=== PATIENT | female | born 1960 | race Caucasian/White ===

== ENCOUNTER 2025-01-01 11:26 | Emergency (ER) | payer MEDICARE, OTHER, SELFPAY ==
[2025-01-01] VITALS (8 sets, daily range): BP systolic 94–126; BP diastolic 55–70; BMI 31.0
--- NOTE | 2025-01-01 12:50 | ED.GENMED ---
History of Present Illness
General
Chief Complaint: Abdominal Pain
Source: patient
Exam Limitations: none
Time Seen by Provider: 01/01/25 12:07
Nursing documentation reviewed up to this point in time: agreed with
History of Present Illness
History of Present Illness:
64-year-old female presenting to the emergency department today with concerns of fever nausea worsening discomfort to her lower abdomen. She had multiple hernia surgeries 2 weeks ago at [place] has had some degree of discomfort since but worsening
symptoms over the past 24 hours or so. She is concerned she may becoming infected. Denies any external abnormalities has had ongoing drainage to her TRACE drains. She currently has [address]
Past History
Past History
ED Past Medical History: Other (Ulcerative colitis)
Social History
Tobacco: Non-smoker
Alcohol: None
Living: with family
Review of Systems
Review of Systems
Allergies reviewed?: Yes
All Other Systems: ROS reviewed and negative except as documented in HPI and ROS
Phy Exam
Physical Exam
Physical Exam:
GENERAL: Alert , in no apparent distress
EYE: pupils equal and reactive
NECK: Supple, no significant adenopathy.
ENT: o/p clr, mmm.
CARDIAC: Regular rate and rhythm .
LUNGS: Clear breath sounds bilaterally, no acute respiratory distress, no wheezes/rales/rhonchi
ABDOMEN: Distended abdomen midline incision without significant redness or warmth or tenderness to the area but vague tenderness throughout the abdomen. Some redness and irritation as well as tenderness palpation in the left lower quadrant at the
exit site of 2 of the patient's TRACE drains. TRACE drains with a light red color somewhat cloudy.
NEUROLOGICAL: Alert and oriented, no focal neuro deficits
SKIN: Warm and dry, skin intact.
MUSCULOSKELETAL: No edema, well perfused.
PSYCH: Normal and appropriate interaction.
Course
Orders/Labs/Results
Orders:
Orders
01/01/25 12:37
CT Abd/Pel (IV only)-DH only Urgent
Comment:
Reason For Exam: llq painrecent multiple hernia surgery TRACE drains/f
Urinalysis Reflex To Culture Urgent
HYDROmorphone [Dilaudid] 0.5 mg IV NOW STA
Ondansetron Injectable [Zofran] 4 mg IV NOW STA
01/01/25 12:52
Complete Blood Count/With Diff Urgent
Comprehensive Metabolic Panel Urgent
Lactic Acid Urgent
Lipase Urgent
01/01/25 15:39
HYDROmorphone [Dilaudid] 0.5 mg IV NOW STA
Piperacillin/Tazo 3.375 Gram [Zosyn] 3.375 gram in 50 ml IV NOW
Abnormal Lab Results
01/01/25
12:52
WBC 16.1 H 10^3/uL
(4.8-10.8)
RBC 3.84 L 10^6/uL
(4.20-5.40)
Hgb 11.6 L g/dL
(12.0-16.0)
Hct 34.1 L %
(37.0-47.0)
Plt Count 466 H 10^3/uL
(130-400)
Abs Immat Gran (auto) 0.1 H 10^3/uL
(0-0.05)
Absolute Neuts (auto) 12.9 H 10^3/uL
(1.4-6.5)
Absolute Monos (auto) 1.3 H 10^3/uL
(0.1-0.6)
Neutrophils % 80.0 H %
(42.2-75.2)
Lymphocytes % 8.6 L %
(20.5-51.1)
Sodium 130 L mmol/L
(135-145)
Chloride 96 L mmol/L
(98-107)
Creatinine 0.5 L mg/dL
(0.6-1.0)
Glucose 122 H mg/dl
(70-99)
01/01/25 12:52
01/01/25 12:52
Vital Signs
Initial and Last Documented VS:
Initial Vital Signs
Temp Pulse Resp BP Pulse Ox
99.7 F 123 18 108/63 96
01/01/25 11:39 01/01/25 11:39 01/01/25 11:39 01/01/25 11:39 01/01/25 11:39
Last Documented Vital Signs
Temp Pulse Resp BP Pulse Ox
99.7 F 89 15 110/59 96
01/01/25 11:39 01/01/25 17:15 01/01/25 17:15 01/01/25 17:00 01/01/25 17:15
MDM/Problems Addressed
MDM/Problems Addressed:
64-year-old female presenting to the emergency department today with concerns of worsening abdominal pain fevers. Recently had multiple hernia surgeries 2 weeks ago at [place]. On arrival tachycardic low-grade temperature of 99.7. Patient does have
an area of discomfort to the left lower quadrant of the abdomen at the site of the TRACE drain. Labs showing elevated white count of 16.1 CT scan was obtained that showed collection that is possibly consistent with infection. Case was then discussed
with surgical team at [place] that would like the patient to be transferred there. They did call back and they did not have a bed available at this time but would like the patient admitted for IV antibiotics and will be transferred when bed is
available. Patient was stable throughout ER stay.
*Pulse Oximetry
SaO2: 96
Oxygen Mode of Delivery: Room air
Patient hypoxic: no (96)
*Critical Care Note
Total Time (30-74mins, 75-104mins- exclusive of procedures): Not Applicable
ED Attending Note
-
Portions of this chart may have been created with voice recognition software.� Occasional wrong word or��sound alike� substitutions may have occurred due to the inherent limitations of voice recognition software.
Discharge Plan
Departure
Patient Disposition: Admit
Date of Disposition: 01/01/25
Time of Disposition: 18:07
Admit to: Med/Surg
Admit to doctor: [place]
Presentation/result/management discussed w/ accepting MD/DO: Hospitalist
Patient with high blood pressure during this ER visit?: No
Condition: Good
Covid-19: Not Applicable
Discharge Problem:
Intra-abdominal infection after surgical procedure
Referrals:
UNKNOWN - PT DOES,NOT KNOW [Family Provider]
Interventions
Interventions:
*Risk Screen - Suicide Last Done: 01/01/25 11:39
*General Assessment Last Done: 01/01/25 11:39
*Neglect/Abuse Screening Last Done: 01/01/25 11:39
*ED COVID-19 Vaccine History Last Done: 01/01/25 14:00
NO-Ipcbxr-Zzablaidyk Assessment Last Done: 01/01/25 14:00
Discharge Date and Time
Print Language: BRITISH
[2025-01-01] MEDS: ZOFRAN 4 MG IV (12:55)
[2025-01-01] MEDS: DILAUDID 0.5 MG IV ×2 (12:55→16:00)
[2025-01-01 13:08] LABS: Hematocrit 34.1 % (37.0-47.0); Hemoglobin 11.6 g/dL (12.0-16.0); Mean Corp Hgb Conc. 34.0 g/dL (33.0-37.0); Mean Corpuscular Volume 88.8 fL (81.0-99.0); Nucleated Red Blood Cells % 0 %; Platelet Count 466 10^3/uL (130-400); Red Cell Dist. Width 12.9 % (11.5-14.5)
[2025-01-01 13:19] LABS: ALT (SGPT) 13 U/L (0-35); AST (SGOT) 15 U/L (14-36); Albumin 3.8 g/dl (3.5-5.0); Alkaline Phosphatase 82 U/L (38-126); Blood Urea Nitrogen 9 mg/dl (7-17); Calcium 8.9 mg/dl (8.4-10.2); Carbon Dioxide 30 mmol/L (22-30); Chloride 96 mmol/L (98-107); Estimated Creatinine Clearance 85 ml/min; Glucose 122 mg/dl (70-99); Lipase 25 U/L (23-300); Potassium 3.9 mmol/L (3.5-5.1); Sodium 130 mmol/L (135-145); Total Protein 6.6 g/dl (6.3-8.2); eGFR > 60.00
[2025-01-01] MEDS: ZOSYN 50 IV (16:00)
[2025-01-01 19:40] LABS: Urine Character Clear (Clear)
[2025-01-01 19:51] LABS: Urine Squamous Cell >30 /LPF (Few)
[2025-01-01 19:52] LABS: Urine Red Blood Cell 0-2 /HPF (0-2); Urine White Cell 0-2 /HPF (0-5)
== END 2025-01-01 19:40 | disposition short-term general hospital (02) ==
LOC: EMR 11:26
PROVIDERS: Physician Assistant; EMERGENCY PHYSICIAN Emergency Medicine
DX: T81.40XA Infection following a procedure, unspecified, initial encounter (principal); Z97.8 Presence of other specified devices
CPT/HCPCS: 96375; 96365; 99285; 74177; 80053; 81003; 81015; 83605; 83690; 85025; 87086; Q9967

== ENCOUNTER 2025-01-28 20:42 | Inpatient (IN) | payer MEDICARE, OTHER, SELFPAY ==
[2025-01-28] VITALS (8 sets, daily range): BP systolic 110–140; BP diastolic 45–83; BMI 31.2; BMI 31.9
[2025-01-28 13:40] LABS: Hematocrit 36.2 % (37.0-47.0); Hemoglobin 12.4 g/dL (12.0-16.0); Mean Corp Hgb Conc. 34.3 g/dL (33.0-37.0); Mean Corpuscular Volume 83.0 fL (81.0-99.0); Nucleated Red Blood Cells % 0 %; Red Cell Dist. Width 12.9 % (11.5-14.5)
[2025-01-28 13:44] LABS: Urine Character Slightly Cloudy (Clear)
[2025-01-28 13:51] LABS: ALT (SGPT) 13 U/L (0-35); AST (SGOT) 17 U/L (14-36); Albumin 3.9 g/dl (3.5-5.0); Alkaline Phosphatase 111 U/L (38-126); Blood Urea Nitrogen 21 mg/dl (7-17); Calcium 9.7 mg/dl (8.4-10.2); Carbon Dioxide 29 mmol/L (22-30); Chloride 96 mmol/L (98-107); Glucose 137 mg/dl (70-99); Potassium 3.8 mmol/L (3.5-5.1); Sodium 133 mmol/L (135-145); Total Protein 7.4 g/dl (6.3-8.2); eGFR > 60.00
[2025-01-28 13:58] LABS: Platelet Count 374 10^3/uL (130-400)
[2025-01-28 14:01] LABS: Urine Squamous Cell >30 /LPF (Few)
[2025-01-28 14:01] LABS: COVID-19 Antigen Negative (Negative)
[2025-01-28 14:02] LABS: Urine Red Blood Cell 0-2 /HPF (0-2); Urine White Cell 60-70 /HPF (0-5)
--- NOTE | 2025-01-28 17:20 | ED.GENMED ---
History of Present Illness
General
Chief Complaint: Fever
Time Seen by Provider: 01/28/25 17:20
History of Present Illness
History of Present Illness:
FOCUSED PAST MEDICAL HISTORY
- The patient has a history of GERD, colitis, abdominal wall hernia surgery in 2024
REVIEW OF OLD RECORDS
-Hospital Course [place]:
'Beatriz Naqvi is a 64 y.o. year-old female with a history of ventral hernia repair (12/15/24, Dr. Abrams), ulcerative colitis (on infliximab), RA (on methotrexate), labial abscess 2/2 MRSA (treated with Doxy), HTN, anxiety, and depression who
presented as a transfer from [place] with fevers and concern for infection of recent hernia incisional site on 01/01/25.
She was admitted post-operatively following her VHR on 12/15, and was discharged on POD #5 (12/20) with 3 TRACE drains. 2 days prior to presenting to OSH, her post-surgical pain had worsened, which was not relived by PO oxycodone.
Upon arrival to OSH, she presented with a fever (Tmax 102 F) with 10/10 abdominal pain from L sided TRACE drain site concerning for infection. She was HDS, with labs pertinent for WBC 16.1, Hgb 11.6, Cr 0.5, Na 130. The patient was started on IV zosyn.
A CT abdomen/pelvis was performed given c/f infection which was concerning for a small fluid collection. Formal OSH read uploaded in media tab. She was transferred to [facility] for continuity of care.
Upon arrival to [facility], she was continued on IV zosyn, started IV vanc, given a CLD, and obtained a Bcx, UA/UC, and RPP. Infectious work-up overall negative, although Bcx were still pending by discharge. B/l lower extremity duplexes negative on
preliminary report. On exam, her midline incision was CDI with steri-strips, although 4-5cm area of blanching erythema noted near the middle portion of the incision. Drain site 3 (L side) with minimal purulent drainage and was tender to palpation.
Upon review of OSH scan, there were no drainable fluid collections, however she had a small amount of fluid in the retrorectus space which is expected after repair. Pain managed with PO oxycodone and tylenol. Physical exam and labs consistent with
soft tissue cellulitis. She was managed conservatively.
HD #1 (01/02): Pain and leukocytosis improved following continuation of broad spectrum ABX. Advanced to regular diet. Intermittent complaints of nausea, given zofran with relief. Intermittently requiring O2 via NC.
HD #2 (01/03): Leukocytosis continued to downtrend and she remained on IV abx. Endorsed one episode of bilious emesis in early AM. SPO2 goals decreased to 90% due to long-term prior smoking hx, and she remained off NC. Drain 2&3 removed. She was given
a bowel regimen.
HD #3 (01/04): Tolerating GI sensitive diet without nausea/vomiting. IV abx transitioned to PO Doxycyline. Desat to 88% while sleeping, and required supplemental O2. She was given an albuterol neb in AM, and was later weaned to RA. She was deemed
stable for discharge home.
At the time of discharge the patient had stable vital signs, was ambulating independently, was tolerating a GI sensitive diet, had regular bowel and bladder function and pain was well controlled with oral medications. Patient is to be discharged
with 1 TRACE drain (#4) in place and was taught how to monitor/record output prior to discharge. They were instructed to follow-up with Richelle Hernandez NP once TRACE drain output met criteria for removal. She was discharged with Doxycycline for a total of 10
days worth of ABX (01/02-01/11). All plans were reviewed with the surgical attending. '
Note:
CHIEF COMPLAINT(S)
Fever, abdominal pain, and post-surgical wound concerns.
HISTORY OF PRESENT ILLNESS
The patient is a 64-year-old female who presented to the emergency department with a chief complaint of fever and abdominal pain. She underwent surgery for a 'triple hernia' which involved two ventral hernias. The surgery was performed on December 15.
She experienced a post-operative infection, requiring an emergency return to the hospital, which led to a four-day stay and the removal of two additional drains. The site is currently packed twice daily by a nurse.
The patient reported having a fever last night and believes it has returned now. She denied any respiratory symptoms but noted nausea and vomiting. She also stated that the white blood cell count was elevated at 19,000. The patient mentioned having
a yeast infection as a result of the antibiotics and complaints of urinary tract infection (UTI) symptoms.
The patient expressed experiencing abdominal pain described as similar to menstrual cramps over the last two days. She also reported experiencing vomiting.
PAST MEDICAL AND SURIGICAL HISTORY
Hernia repair surgery for two ventral hernias on December 15, followed by emergency intervention due to post-surgical infection.
SOCIAL HISTORY
The patient was accompanied by her daughter to the emergency department.
REVIEW OF SYSTEMS
- General: Fever present, reportedly high white blood cell count.
- Gastrointestinal: Nausea and vomiting, menstrual cramps-like pain in the abdomen.
- Genitourinary: Symptoms suggestive of a urinary tract infection and yeast infection following antibiotic therapy.
- Respiratory: No respiratory symptoms reported.
PHYSICAL EXAM
General: Appears somewhat uncomfortable, awake and alert
Skin: Warm, dry.
Head: Normocephalic, atraumatic.
Neck: Supple, trachea midline.
Eyes, Ears, Nose, Mouth, and Throat: Oral mucosa moist.
Cardiovascular: Normal peripheral perfusion, no edema.
Respiratory: Respirations are non-labored.
Gastrointestinal: Abdomen nondistended, packing is noted in the midline incision in the lower abdominal wall in 2 open surgical wounds, mild to moderate tenderness at the affected region, no significant cellulitic changes noted
Back: Normal range of motion, normal alignment.
Musculoskeletal: Normal range of motion, normal strength.
Neurological: Alert and oriented to person, place, time, and situation, no focal neurological deficit observed.
Psychiatric: Cooperative, appropriate mood and affect.
PLAN
1. Obtain a computed tomography (CT) scan to evaluate the abdominal and surgical site conditions.
2. Address pain management, possibly providing stronger medication as requested.
3. Monitor and assess the yeast infection and discuss potential treatments for both yeast infection and suspected UTI.
4. Continue monitoring vital signs and symptoms, particularly fevers and any signs of infection.
DIFFERENTIAL DIAGNOSIS
The Differential Diagnosis includes, in no particular order and is not limited to:
1. Post-surgical wound infection
2. Urinary tract infection
3. Abdominal abscess
4. Peritonitis
5. Yeast infection secondary to antibiotic use
6. Adhesive small bowel obstruction
7. Incisional hernia
8. Diverticulitis
9. Pelvic inflammatory disease
10. Gastroenteritis
RADIOLOGY
- CT abdomen pelvis obtained.
LABS
- White count 19.0, hemoglobin normal, BUN 21, urinalysis shows 60-70 white cells per high-powered field however she also has greater than 30 squamous epithelial cells per low power field. COVID-negative
UPDATE
-SUMMARY OF ENCOUNTER
The patient, a 64-year-old female with a recent history of hernia repair surgery and subsequent complications, was seen due to concerns about ongoing infection. She presented with a high white blood cell count and symptoms of infection. The
evaluation revealed signs of possible diverticulitis in addition to complications related to her recent surgery. Given her elevated white blood cell count and potential signs of an infection possibly involving the colon, the decision was made to
initiate IV antibiotic therapy and consider hospitalization for further monitoring and management.
DISPOSITION
Admit
ASSESSMENT
The patient is presenting with a high white blood cell count and signs of infection. There is a suspicion of diverticulitis, potentially separate from the post-surgical wound infection. The patient has a known history of ulcerative colitis, which
complicates the clinical picture.
EMERGENCY TREATMENTS ADMINISTERED
Initiation of IV antibiotic therapy to address the possible infection.
MANAGEMENT OF THE PATIENTS CARE WAS DISCUSSED WITH
The hospitalist was consulted regarding the decision to admit the patient for closer monitoring and management, given the high white blood cell count and suspected infectious process.
PLAN
- Admit the patient for inpatient monitoring and management.
- Initiate IV antibiotic treatment to address possible infection.
- Continue to monitor white blood cell count and infection markers.
- Evaluate the need for surgical or gastroenterological consultation if symptoms persist or escalate.
- Reassess the patients condition regularly, including monitoring for any signs of complications related to diverticulitis or ulcerative colitis.
INDEPENDENT REVIEW OF LABS AND INTERPRETATION OF TESTS
My independent review of the complete blood count (CBC) indicates leukocytosis with an elevated white blood cell count.
MEDICAL DECISION MAKING
- Number and Complexity of Problems Addressed: Chronic conditions affecting care include recent hernia repair with possible post-operative infection, suspected diverticulitis, and history of ulcerative colitis. Differential Diagnosis includes, but
is not limited to, post-surgical wound infection, urinary tract infection, abdominal abscess, peritonitis, yeast infection secondary to antibiotics, adhesive small bowel obstruction, incisional hernia, diverticulitis, pelvic inflammatory disease,
and gastroenteritis.
- Data:
Category 1:
- Reviewed the patients complete blood count indicating leukocytosis.
Category 3:
- Discussion of management with the hospitalist regarding the decision to admit the patient for IV antibiotic therapy and further monitoring.
-Risk: Prescription medication was prescribed and initiated in the form of IV antibiotics for infection management. The patients social determinants, such as her ability to attend follow-up appointments, were considered in the decision-making
process.
DIAGNOSIS
- K57.32 - Diverticulitis of large intestine without perforation or abscess without bleeding
- D72.829 - Elevated white blood cell count, unspecified
- K51.911 - Ulcerative colitis, unspecified, with unspecified complications
At 8pm, I did call [facility] and spoke to the on-call general surgeon, Dr. Barnhart who sees no need for transfer at this time but agrees with IV antibiotics.
Past History
Past History
ED Past Medical History: Other (Ulcerative colitis)
Social History
Tobacco: Non-smoker
Alcohol: None
Living: with family
Phy Exam
Physical Exam
Physical Exam:
See HPI
Course
Orders/Labs/Results
Orders:
Orders
01/28/25 13:19
COVID-19 Antigen Urgent
Source: Nasal Swab
Complete Blood Count/With Diff Urgent
Comprehensive Metabolic Panel Urgent
Lactic Acid Urgent
Blood Culture Urgent
DANIELITO Source: Blood/Venous
Specimen Description:
Influenza A+B Rapid Molecular Urgent
DANIELITO Source: Nasal Swab
Specimen Description:
Date Specimen was Collected: 01/28/25
Time Specimen was Collected: 13:10
01/28/25 13:20
Urinalysis Reflex To Culture Urgent
Date Specimen was Collected: 01/28/25
Time Specimen was Collected: 13:10
Urine Microscopic Reflex Cult Urgent
Urine Culture Urgent
DANIELITO Source: U
Specimen Description:
Date Specimen was Collected: 01/28/25
Time Specimen was Collected: 13:10
01/28/25 17:26
CT Abd/pelvis W Iv Cont Urgent
Comment:
Reason For Exam: fevers, WBC 19, pain, ventral wall hernia surg 1M
01/28/25 17:51
HYDROmorphone [Dilaudid] 1 mg IV NOW STA
01/28/25 17:52
Ondansetron Injectable [Zofran] 4 mg IV NOW STA
01/28/25 19:37
Piperacillin/Tazo 3.375 Gram [Zosyn] 3.375 gram in 50 ml IV NOW
01/28/25 19:41
Vancomycin [Vancocin] 2,000 mg 0.9% Sodium Chloride 500 ml [Nss] 500 ml IV NOW
Abnormal Lab Results
01/28/25 01/28/25
13:19 13:20
WBC 19.0 H 10^3/uL
(4.8-10.8)
Hct 36.2 L %
(37.0-47.0)
Abs Immat Gran (auto) 0.1 H 10^3/uL
(0-0.05)
Absolute Neuts (auto) 15.4 H 10^3/uL
(1.4-6.5)
Absolute Monos (auto) 1.4 H 10^3/uL
(0.1-0.6)
Neutrophils % 81.1 H %
(42.2-75.2)
Lymphocytes % 10.2 L %
(20.5-51.1)
Sodium 133 L mmol/L
(135-145)
Chloride 96 L mmol/L
(98-107)
BUN 21 H mg/dl
(7-17)
Glucose 137 H mg/dl
(70-99)
Ur Occult Blood Reflex 2+ A
(Negative)
Leukocyte Esterase Rfl 3+ A
(Negative)
Urine WBC (Reflex) 60-70 A /HPF
(0-5)
Urine Bacteria (Reflex) Few A
(Negative)
Urine Albumin (Reflex) 2+ A
(Neg - Trace)
01/28/25 13:19
01/28/25 13:19
Vital Signs
Initial and Last Documented VS:
Initial Vital Signs
Temp Pulse Resp BP Pulse Ox
36.7 C 94 20 134/83 94
01/28/25 13:04 01/28/25 13:04 01/28/25 13:04 01/28/25 13:04 01/28/25 13:04
Last Documented Vital Signs
Temp Pulse Resp BP Pulse Ox
36.9 C 96 18 125/68 92
01/28/25 19:18 01/28/25 20:00 01/28/25 20:00 01/28/25 20:00 01/28/25 20:00
*Pulse Oximetry
SaO2: 94
Oxygen Mode of Delivery: Room air
Patient hypoxic: no
*Critical Care Note
Total Time (30-74mins, 75-104mins- exclusive of procedures): Not Applicable
ED Attending Note
-
Portions of this chart may have been created with voice recognition software.� Occasional wrong word or��sound alike� substitutions may have occurred due to the inherent limitations of voice recognition software.
Discharge Plan
Departure
Patient Disposition: Admit
Date of Disposition: 01/28/25
Time of Disposition: 20:05
Presentation/result/management discussed w/ accepting MD/DO: Hospitalist
Discharge Problem:
Diverticulitis
Prescriptions:
No Action
infliximab [Remicade] 100 mg Recon Soln
100 mg IV MONTHLY
folic acid 1 mg Tablet
4 mg PO DAILY
Patient Comments:
unsure how much
hydrochlorothiazide 12.5 mg Tablet
2.5 mg PO DAILY
Referrals:
Laurie Rod DO [Family Provider, Family Practice]
Interventions
Interventions:
*Risk Screen - Suicide Last Done: 01/28/25 13:04
*General Assessment Last Done: 01/28/25 13:04
*Neglect/Abuse Screening Last Done: 01/28/25 17:58
*ED- Fall Risk Assessment Last Done: 01/28/25 17:58
*ED COVID-19 Vaccine History Last Done: 01/28/25 17:58
ED- Neurological Assessment Last Done: 01/28/25 17:58
ED-Skin Assessment Last Done: 01/28/25 17:58
Discharge Date and Time
Print Language: GUYANESE
[2025-01-28] MEDS: ZOFRAN 4 MG IV (17:55)
[2025-01-28] MEDS: DILAUDID 1 MG IV (17:55)
--- NOTE | 2025-01-28 18:29 | EDRN ---
this RN noticed that the pts Sp02 dipped to 77% while on RA, this RN entered the pts room and the pt was sleeping, this RN placed the pt on 6L NC and notified Dr. Sanchez, the pt stated to this RN, 'I probably have sleep apnea, i was told
this before i just never got tested for it', Sp02 96%, no c/o chest pain, no c/o SOB, will continue to monitor the pt closely
[2025-01-28] MEDS: ZOSYN 50 IV (19:40)
--- NOTE | 2025-01-28 19:43 | HPS.HSE ---
Addendum entered and electronically signed by NUNU Moraes 01/28/25 20:39:
as per surgery: We can manage with abx for now, suspect may be related or is involving her abdominal wall repair. If she needs surgery or anything beyond abx she should be transferred to [facility].
Original Note:
Family Physician
-
Family Physician: Laurie Rod
Chief Complaint
-
abdominal pain
History of Present Illness
64-year-old female with past medical history for hypertension who presented to the emergency department with a chief complaint of fever and abdominal pain. she had a temp of 101 and 102 at home. she was nauseous and vomited few times. patient
stated shaking chills. she is constipated and has not moved bowels in four days despite on stool softener. patient stated urinary dysuria. she feels the urgency but was only dribbling. She underwent surgery for a 'triple hernia' which involved two
ventral hernias. The surgery was performed on December 15. She experienced a post-operative infection, requiring an emergency return to the hospital, which led to a four-day stay and the removal of two additional drains. The site is currently packed
twice daily by a nurse. patient complained of ARGUETA, dizzy. denied cough, congestion, chest pain, sob.
The patient mentioned having a yeast infection as a result of the antibiotics and complaints of urinary tract infection (UTI) symptoms.
CT with diverticulitis. Patient received Vanco and Zosyn in ER. Admitting for further management
Medical History
Past Medical History
Past Medical History: Reports Other
Additional Past Medical History:
Hypertension, ulcerative colitis
Past Surgical History: Reports Other
Additional Past Surgical History:
Ventral hernia repair
Social History
Tobacco: Former Smoker
Alcohol: None
Drug: None
Family History
Family History: Not pertinent
Allergies / Home Medications
Allergies reflects when Allergies were last updated in [employer].
Home Medications with original date entered in [employer]
Allergy/Medication List:
Allergies
Allergy/AdvReac Type Severity Reaction Status Date / Time
codeine Allergy Vomiting Verified 01/28/25 13:06
Home Medications
folic acid 1 mg tablet 4 mg PO DAILY 01/01/25
hydrochlorothiazide 12.5 mg tablet 2.5 mg PO DAILY 01/01/25
infliximab 100 mg intravenous solution (Remicade) 100 mg IV MONTHLY 01/01/25
Review of Systems
-
Constitutional: Reports No Symptoms
EENT: Reports No Symptoms
Respiratory: Reports No Symptoms
Cardiac: Reports No Symptoms
Abdomen/GI: Reports Abdominal Pain, Nausea, Vomiting and Constipated
: Reports Dysuria
Musculoskeletal: Reports No Symptoms
Skin: Reports No Symptoms
Neurological: Reports No Symptoms
Endocrine: Reports No Symptoms
Hematologic/Lymphatic: Reports No Symptoms
Psych: Reports No Symptoms
Physical Exam
Vital Signs
Vital Signs
Temp Pulse Resp BP Pulse Ox
98.4 F 99 11 140/73 100
01/28/25 19:18 01/28/25 19:18 01/28/25 19:18 01/28/25 19:17 01/28/25 19:18
Physical Exam
General: Well Developed, Well Nourished and No Apparent Distress
HEENT: NormoCephalic, Moist mucous membranes and Atraumatic
Respiratory: Clear
Cardiac: S1/S2 and Regular Rhythm; No Murmur or Rub
GI: Soft, Non Tender, Non Distended and Normal Bowel Sounds; No Organomegaly
Rectal: Deferred by Provider
Musculoskeletal: No Clubbing, No Cyanosis and No Edema
Skin: Rash and Other (Abdominal wound site with drainage packed)
Neuro: AO x 3 and Nonfocal/grossly intact
Psych: Calm
Laboratory Results
-
01/28/25 13:19
01/28/25 13:19
Laboratory Results
Lactic Acid 1.3 mmol/L (0.7-2.0) 01/28/25 13:19
Total Bilirubin 0.7 mg/dl (0.2-1.3) 01/28/25 13:19
AST 17 U/L (14-36) 01/28/25 13:19
ALT 13 U/L (0-35) 01/28/25 13:19
Alkaline Phosphatase 111 U/L (38-126) 01/28/25 13:19
Data Reviewed
-
CT Scan: Report Reviewed by me
Lab Data: Labs Reviewed by me
Impression/Plan
-
# Abdominal pain secondary to diverticulitis
# Abdominal wound from drain site
- Vanco and Zosyn continue
- WBCs 19.0, patient is afebrile
-Wound care consulted
-Tylenol as needed for fever and pain
-Clear liquid diet, advance as tolerated
-Colorectal consulted
- CT abdomen pelvis with impression of Findings suggesting moderate acute diverticulitis of the mid sigmoid colon. No evidence of perforation or abscess formation in this region. New.Mildly rim-enhancing fluid collection in the anterior pelvic wall
which may be a postoperative seroma or hematoma. Abscess cannot be excluded. New.Small anterior pelvic wall wound versus incisional dehiscence.Small hiatal hernia. Stable Hepatic fatty infiltration. Stable Moderate fecal matter in the colon. Stable
# Hyponatremia likely from hydrochlorothiazide
- Sodium 133 continue to monitor
- Hold HCTZ
# Essential hypertension
- BP stable
- Continue to monitor
# History of ulcerative colitis
- On Remicade as outpatient
# DVT prophylaxis
- Lovenox
# CODE STATUS
- Full code
--- NOTE | 2025-01-28 19:57 | W.PN.UPDATE ---
Update Note
Progress Note Update
This note serves as an addendum to the H&P by mental health orderly BHARGAV�
Joana EDGAR�
HPI
64F s/p two ventral hernias repai at [facility], December 15 complictaed with infection abd wall required drainage seen at ER:
- fevering , and abdominal pain. S
- surgical site is packed twice daily by a nurse.
- reported having a fever last night and believes
- noted nausea and vomiting.
- WCC was 19k
- abdominal pain described as similar to menstrual cramps over the last two days. She also reported experiencing vomiting.
Relevant VS:
Temp Pulse Resp BP Pulse Ox
98.4 F 99 11 140/73 100
01/28/25 19:18 01/28/25 19:18 01/28/25 19:18 01/28/25 19:17 01/28/25 19:18
PE
Gen: no toxic
HEENT: anicteric
Neck: supple
Lungs: CTA
Cor: RRR S1 S2
Abdomen:�distended , mid line abdonial wound is covered by dressing
[employer]: AAO3 NFND
MS: no edema
Psych: Nl mood and affect
Relevant Data
WCC 19
Na 133 Cl 96
Cr 0.8 eGFR > 60
abn UA UA 01/28/25
13:20
Leukocyte Esterase Rfl 3+ A
Urine RBC 0-2
Urine WBC (Reflex) 60-70 A
Ur Squamous Epith Cells >30
NEG Cov[address]
CT AP W Iv Cont
- moderate acute diverticulitis of the mid sigmoid colon.
No evidence of perforation or abscess formation in this region.
- New mildly rim-enhancing fluid collection in the anterior pelvic wall which may be a postoperative seroma or hematoma.
Abscess cannot be excluded. New.
- Small anterior pelvic wall wound versus incisional dehiscence.
- Small hiatal hernia. Stable
- Hepatic fatty infiltration. Stable
- Moderate fecal matter in the colon. Stable
ASSESSMENT & PLAN
CT suggests moderate acute uncomplicated diverticulitis of the mid sigmoid colon
- first attack of diverticulitis
- No evidence of perforation or abscess formation in this region.
- Some increased abd pain.
- Afebrile but WBC 19
- Empiric IV vanco and Zosyn
- Clear and IV NS @ 60/H
- PRN analgesia
- CRS consult
CT shows the known abd wall fluid collection
S/P ventral wall hernia repair at [facility] in November
- seen in ED on 01/01 and transferred due to infection abd wall; had drains and s/p prolonged ABx for 3 months
Moderate fecal matter in the colon
Constipation
- Miralax x once
- f/u BM
Significant pyuria with dysuria
had yeast infection s/p ABx
- await UCX
- current on BS ABx for acute diverticulitis
HX UC on Remicade
- Hold off Remicade for now
HX NELLA
- did not wear CPAP
- Desat s/p Dilaudid
- on supplemental O2
Mildly hyponatremia Na 133
Essential HTN
- Hold HCTZ
DVT Px: LMWH
Code: Full
IP MS
[2025-01-28] MEDS: VANCOCIN 540 MG IV (20:08)
--- NOTE | 2025-01-28 21:52 | PHA.VAN.IN ---
Assessment
- Assessment
Renal Function: Appears similar to baseline
Concomitant Antimicrobials: ZOSYN
AUC Dosing Plan
- Dosing Variables
Dosing Weight (kg): 72.6
Dosing CrCl (ml/min): 62
Vd coefficient (L/kg): 0.7
- Empiric Dosing
Initial / Loading Dose: 2000 MG IV ~ 2000
Maintenance Regimen: 1500 MG IV Q24H
Estimated AUC (mcg*h/mL): 550
Estimated Peak (mcg*h/mL): 40
Estimated Trough (mcg/ml): 11.4
Estimated Half Life (H): 12.4
- Monitoring
No levels ordered at this time: Consider level in next few days
Pharmacokinetics Vancomycin I
- -
Patient Age: 64
Patient Sex: Female
Vancomycin Day #: 1
Indication: Skin And Soft Tissue
Requesting Provider: Manuel Babb
Height / Weight:
Height 5 ft
Actual Weight 72.575 kg
Pertinent Past Medical History: s/p two ventral hernias repai at [facility], December 15 complictaed with infection
- Vital Signs / Lab Results
Temp Pulse Resp BP Pulse Ox
98.4 F 97 16 127/54 97
01/28/25 19:18 01/28/25 21:00 01/28/25 21:00 01/28/25 21:00 01/28/25 21:00
Lab Results - Hematology
01/28/25
13:19
WBC 19.0 H
Lab Results - Chemistry
01/28/25
13:19
BUN 21 H
Creatinine 0.8
Albumin 3.9
01/28/25
13:19
Lactic Acid 1.3
Lab Results - Urine
01/28/25
13:20
Urine Nitrite (Reflex) Negative
Leukocyte Esterase Rfl 3+ A
Urine WBC (Reflex) 60-70 A
Ur Squamous Epith Cells >30
Urine Bacteria (Reflex) Few A
Microbiology Results
01/28/25 13:19 Influenza Types A & B (CLARITA) - Final
Nasal Swab Negative for Influenza A & B, NAAT
Negative results must be combined with clinical observations
and patient history.
Nucleic Acid Amplification test (NAAT)performed on the
[employer] platform.
[2025-01-28] MEDS: SENOKOT 8.6 MG PO (22:15)
[2025-01-28] MEDS: MIRALAX 17 GRAMS PO (22:15)
[2025-01-28] MEDS: COLACE 100 MG PO (22:15)
[2025-01-28] MEDS: DILAUDID 0.25 MG IV (23:22)
[2025-01-29] MEDS: ZOSYN 50 IV ×4 (01:38→20:20)
[2025-01-29 06:43] LABS: Hematocrit 32.4 % (37.0-47.0); Hemoglobin 10.8 g/dL (12.0-16.0); Mean Corp Hgb Conc. 33.3 g/dL (33.0-37.0); Mean Corpuscular Volume 85.3 fL (81.0-99.0); Platelet Count 296 10^3/uL (130-400); Red Cell Dist. Width 13.2 % (11.5-14.5)
[2025-01-29 07:11] LABS: Blood Urea Nitrogen 15 mg/dl (7-17); Calcium 8.5 mg/dl (8.4-10.2); Carbon Dioxide 35 mmol/L (22-30); Chloride 95 mmol/L (98-107); Estimated Creatinine Clearance 55 ml/min; Glucose 118 mg/dl (70-99); Potassium 3.4 mmol/L (3.5-5.1); Sodium 132 mmol/L (135-145); eGFR > 60.00
[2025-01-29 07:37] VITALS: BP 114/63
[2025-01-29] MEDS: MIRALAX 17 GRAMS PO (07:49)
[2025-01-29] MEDS: TYLENOL 650 MG PO ×3 (08:00→20:21)
--- NOTE | 2025-01-29 08:57 | PHA.VAN.FU ---
Vancomycin Assessment / Plan
- Assessment
Renal Function: SCR Increasing (BUN INCREASING)
In the past 24 hrs, patient has been: Afebrile
Concomitant Antimicrobials: PIPERACILLIN/TAZOBACTAM
- Dosing Plan
Adjust Regimen to: VANCO 1250MG Q24H
New Regimen Predicts: AUC (500), Peak (34.5), Trough (11.2)
- Monitoring Plan
No level(s) ordered at this time: CONSIDER LEVEL PRIOR TO 4TH MAINTENANCE DOSE
- Follow Up
Pharmacy will continue to follow.
Vancomycin Follow UP
- -
Patient Age: 64
Patient Sex: Female
Vancomycin Day #: 2
Indication: Skin And Soft Tissue
Requesting Provider: Manuel Babb
Height / Weight:
Height 5 ft
Actual Weight 74.021 kg
Pertinent Past Medical History: s/p two ventral hernias repai at [facility], December 15 complictaed with infection
- Vital Signs / Lab Results
Temp Pulse Resp BP Pulse Ox
98.7 F 105 18 114/63 89
01/29/25 07:37 01/29/25 07:37 01/29/25 07:37 01/29/25 07:37 01/29/25 07:37
Lab Results - Hematology
01/28/25 01/29/25
13:19 06:32
WBC 19.0 H 15.8 H
Lab Results - Chemistry
01/28/25 01/29/25
13:19 06:32
BUN 21 H 15
Creatinine 0.8 0.9
Estimated Creat Clear 55
Albumin 3.9
01/28/25
13:19
Lactic Acid 1.3
Lab Results - Urine
01/28/25
13:20
Urine Nitrite (Reflex) Negative
Leukocyte Esterase Rfl 3+ A
Ur Squamous Epith Cells >30
Microbiology Results
01/28/25 13:19 Influenza Types A & B (CLARITA) - Final
Nasal Swab Negative for Influenza A & B, NAAT
Negative results must be combined with clinical observations
and patient history.
Nucleic Acid Amplification test (NAAT)performed on the
[employer] platform.
--- NOTE | 2025-01-29 10:44 | W.PN.HOSP.TC ---
Addendum entered and electronically signed by Vincenzo Hadley MD 01/29/25 16:23:
Please use billing under D/C summary, not the oneunder this note
Original Note:
Today's Communication/Plan
-
See PN
Assessment / Plan
Assessment / Plan
64yo F with PMHx of UC on Remicade, HTN, recent ventral hernia repair by in [facility] on 12/15/24, Hx of TRACE drain site and postOP wound infection on 01/01/25. Developed recurrent fever on 01/28/[address] found diverticulitis, also rim-enhancing
fluid collection in the anterior pelvic wall 5.8 x 1.5 x 4.4 cm
A/P:
#Acute sygmoid Diverticulitis
Zosyn
Advance diet as tolerated
Bcx
Colonoscopy in 4-6 weeks after resolution
#Small anterior pelvic wall wound versus incisional dehiscence.
#rim-enhancing fluid collection in the anterior pelvic wall
apparently known to patient
Will discuss with surgical service
#Fatty liver disease
#Essential HTN
#UC not in flare
#RA
cont home meds
#Hypokalemia
replete and follow
DVt ppx lovenox
Full code
I have spent at least 54min reviewing chart, test results, communication with consultants and providing direct patient care
Anticipated Discharge: > 48 hours
Subjective/Interval History
-
Date of Service: January 29, 2025
Objective Data
-
Labs:
Laboratory Results
01/29/25
06:32
WBC 15.8 H
Hgb 10.8 L
Hct 32.4 L
Plt Count 296 D
Sodium 132 L
Potassium 3.4 L
Chloride 95 L
Carbon Dioxide 35 H
BUN 15
Creatinine 0.9
Glucose 118 H
Calcium 8.5
Vital Signs:
Vital Signs
Temp Pulse Resp BP Pulse Ox
98.7 F 105 18 114/63 89
01/29/25 07:37 01/29/25 07:37 01/29/25 07:37 01/29/25 07:37 01/29/25 07:37
I&O
01/28/25 01/29/25 01/30/25
06:59 06:59 06:59
Intake Total 50 / 50
Balance 50 / 50
Review of Systems
-
History Source: Patient
All other systems: Reviewed and negative
Physical Exam
-
General: No Apparent Distress
HEENT: Normocephalic
Respiratory: Clear to Auscultation
GI: Soft, Nondistended and Tender
Musculoskeletal: No Clubbing, No Cyanosis and No Edema
Neuro: Awake, Alert, Oriented and AO x 3
Psych: Calm
[2025-01-29] MEDS: VANCOCIN 275 MG IV (11:02)
--- NOTE | 2025-01-29 12:09 | CON.GS ---
Addendum entered and electronically signed by Bernard Mcfarland MD 01/29/25 13:31:
Patient seen and examined. Agree with assessment plan as documented below.
Patient is a 64 yo F with a PMH of UC (on Remicade) and arthritis (on MTX) s/p posterior and anterior spine surgery c/b ventral incisional hernia s/p open ventral incisional hernia repair with mesh by Dr. Sterling Abrams down at [facility] in mid November.
Ms. Naqvi has had persistent issues with a wound infection. She has been previously transferred back to [facility] back in early December during which time she underwent removal of drains, IV antibiotics, and ultimate discharge on oral antibiotics.
She completed this oral antibiotic therapy weeks ago. She re-presents to with worsening abdominal pain and fevers. No nausea or vomiting. Reports more issues with constipation. Denies any diarrhea or bloody stools. Her typical ulcerative
colitis flares resulting in looser stools.
Gen: NAD
Abd: soft, tender in lower abdomen, ND, non-peritoneal, midline with no erythema, palpable induration, two 1-2 cm openings inferiorly, seropurulent packing removed and replaced, inferior opening probed deeper and more inferiorly, culture obtained
Labs and CT scan were reviewed.
Patient is a 64 yo F p/w abdominal pain and fevers secondary to diverticulitis versus persistent postoperative abdominal wall infection
CT scan imaging was reviewed. Regardless of source of infection (colonic versus abdominal wall) treatment remains with antibiotic therapy. No plans or indication for surgical intervention at this time. No need for either surgical or IR drainage
procedures at this time. Less likely to be a IBD flare given her history and CT scan appearance. Could consider GI consult if symptoms persist. Appears to be showing some improvement with decrease in her WBC. Continue with local wound care.
Recommend ID consult for consideration of outpatient IV antibiotic therapy. She has an upcoming appointment with her surgeon (Dr. Abrams) later this week. All questions answered. Surgery team at [facility] updated.
-- Clears
-- Abx: Vancomycin and Zosyn, consult ID
-- Local wound care
Original Note:
Consultation
-
Date/Time Consultation Performed: 01/29/25 1115
Medical History
-
Chief Complaint: fever
History of Present Illness:
Ms Naqvi is a 64 yo female with a h/o UC on Remicade and MTX (off since ?September or October for surgery) who recently underwent ventral hernia repair at [facility] in mid November. Her recovery was complicated by abscess necessitating readmission down at [facility] with
drains placed at that time and subsequently removed. She was on IV abx while inpatient and transitioned to oral upon d/c and notes that she has been off abx for over a week now. She has followed up in the outpatient clinic and there was noted fluid
collecting under her incision causing bulging, the incision was opened in 2 areas a little over 2 weeks ago, and she has been packing the wound with the assistance of home care since that time. Yesterday, she noted a fever of 102.1 and at the advice
of her home care nurse, presented through the ED for evaluation. She denies bowel or bladder changes. She does have discomfort beneath her incision but denies recent worsening. She denies nausea or vomiting. The incision is healing well otherwise
with fibrinous debris noted in the base of these 2 wounds. Abdomen with some mild tenderness to the base of the incision and pelvis without distention.
Past Medical History
Past Medical History: HTN and Other (UC)
Past Surgical History: Hernia Repair (Ventral Hernia repair with Dr. Abrams at [facility])
Social History
Tobacco: Former Smoker (quit this summer)
Alcohol: None
Family History
Family History: Reviewed & Not Pertinent
Allergies / Home Medications
Allergy/AdvReac Type Severity Reaction Status Date / Time
codeine Allergy Vomiting Verified 01/28/25 13:06
�Medication �Instructions �Recorded �Confirmed �Type
folic acid 1 mg tablet 4 mg PO DAILY 01/01/25 01/28/25 History
hydrochlorothiazide 12.5 mg tablet 2.5 mg PO DAILY 01/01/25 01/28/25 History
infliximab 100 mg intravenous 100 mg IV MONTHLY 01/01/25 01/28/25 History
solution (Remicade)
Review of Systems
-
History Source: Patient
All other systems: Negative unless noted
A 10 point review of systems was completed, and was negative except as per HPI.
Physical Exam
Vital Signs
Temp Pulse Resp BP Pulse Ox
98.7 F 105 18 114/63 89
01/29/25 07:37 01/29/25 07:37 01/29/25 07:37 01/29/25 07:37 01/29/25 07:37
01/28/25 01/29/25 01/30/25
06:59 06:59 06:59
Actual Weight 74.021 kg
Body Mass Index (BMI) 31.9
Lab Results
01/29/25 06:32
01/29/25 06:32
WBC 15.8 10^3/uL (4.8-10.8) H 01/29/25 06:32
Hgb 10.8 g/dL (12.0-16.0) L 01/29/25 06:32
Hct 32.4 % (37.0-47.0) L 01/29/25 06:32
Plt Count 296 10^3/uL (130-400) D 01/29/25 06:32
Abs Immat Gran (auto) 0.1 10^3/uL (0-0.05) H 01/28/25 13:19
Neutrophils % 81.1 % (42.2-75.2) H 01/28/25 13:19
Physical Exam
General: Well Developed and Well Nourished
HEENT: Moist Mucous Membranes
Respiratory: Non Labored Respirations
GI: Soft, Non Distended and Tender (tender at base of incision/pelvis)
Skin: Warm and Other (midline incision relatively well healed with 2 open areas near base with fibrinous debris noted)
Psych: Calm
Data Reviewed
-
CT Scan: Image Personally Visualized and interpreted, Report Reviewed by me, Discussed with Physician, Discussed with Nurse and Discussed with Patient
Labs: Labs Reviewed by me, Discussed with Physician and Discussed with Patient
Old Records: Reviewed
Assessment / Plan
-
Ms Naqvi is a 64 yo female with a h/o UC on Remicade and MTX (off since ?September or October for surgery) who recently underwent ventral hernia repair at [facility] in mid November. Her recovery was complicated by abscess necessitating readmission down at [facility] with
drains placed at that time and subsequently removed. She was on IV abx while inpatient and transitioned to oral upon d/c and notes that she has been off abx for over a week now. She has followed up in the outpatient clinic and there was noted fluid
collecting under her incision causing bulging, the incision was opened in 2 areas a little over 2 weeks ago, and she has been packing the wound with the assistance of home care since that time. Yesterday, she noted a fever of 102.1 for which she
took Tylenol and at the advice of her home care nurse, presented through the ED for evaluation. Leukocytosis present on admission around 19.0 now trending down to 15.8. No further fevers. VSS. She denies bowel changes. No erythema to incisions, some
fibrinous drainage/debris in base of open areas at base of incision. CT imaging reviewed with inflammation noted around the mid sigmoid colon up to the anterior pelvic wall. Possibly Diverticulitis vs less likely UC flare or reactive inflammation to
process at incision.
Plan:
CX sent of incision site. C/W local wound care with iodoform packing to open area.
Continue IV ABX
Ok for clear liquids
Would recommend GI consult to further evaluate for IBD flare
No plans for emergent surgery at this time, will follow for continued improvement with ABX/bowel rest
--- NOTE | 2025-01-29 12:17 | CM ---
CM reviewed chart, patient seen bedside, initial assessment completed. Patient is a 64-year-old female with past medical history for hypertension who presented to the emergency department with a chief complaint of fever and abdominal pain.
Patient resides with her children in a two level home, one step to enter through front door, ramp to enter through back. Patient currently on O2- does not wear home O2. Patient denies use of DME in the home, is current with [facility] for wound care,
denies SNF hx. PCP Laurie Rod, pharmacy [facility]. Patient confirms prescription coverage, denies insecurities at home. Will send LISA referral to [facility]. CM will continue to follow for all discharge planning needs.
Plan; home with [facility] LISA likely
[2025-01-29] MEDS: KCL 270 MEQ IV (14:02)
--- NOTE | 2025-01-29 15:12 | CON.ID ---
Consultation
-
Date/Time Consultation Requested: 01/29/2025 1201
Date/Time Consultation Performed: 01/29/2025 1500
Requesting Provider: Dr. Hadley
Performing Provider: Dr. Maravilla
Reason for Consultation: Fevers, abdominal collection
Chief Complaint / Past History
History of Present Illness
Beatriz Naqvi is a 64-year-old female being evaluated at the request of Dr. Hadley regarding fever and abdominal pain. History is obtained from chart review, along with patient interview.
The patient has a longstanding history of ulcerative colitis for the past 14 years and previously was on Remicade and methotrexate. She reports that she underwent spine surgery approximately 2 years ago, which required an anterior approach.
Ultimately, she developed 2 ventral and 1 umbilical hernias attributed to that prior surgery. She underwent corrective hernia surgery on 12/15/2024 at [facility], and she notes that mesh was placed at that time. She was in the hospital for 5 days, during
which time she had 4 drains, and was ultimately discharged with 3 drains. She was at home for approximately 2 weeks and then developed a fever. Her nurse advised her to go to the emergency room and she came to [facility]. After
discussing her case with her surgeon she was transferred back down to [facility] where she was admitted for 4 days during which time she received antibiotics. 2 of her drains were removed and she was discharged to home with 1 drain and doxycycline.
She had been home approximately 2 weeks at this time during which time her drain fell out (probably 7 to 8 days ago. Thereafter, she noted a 'bump' along her lower incisional line. She presented back to [facility] on 01/28 secondary to the
development of fevers. A repeat CT of the area shows a collection versus seroma in the lower abdominal area. Infectious Diseases asked to comment upon further antimicrobial management. At the present time she notes ongoing nausea and vomiting.
She also notes mid lower abdominal discomfort along with left lower quadrant discomfort. She admits to ongoing chills. She denies any dysuria. All other systems were reviewed and were negative.
Past History
Additional Past Medical History:
colitis (Remicade, methotrexate)
Abdominal hernia
HTN
Additional Past Surgical History:
Recent ventral hernia repair (11/2024; [facility])
Allergy History:
codeine Allergy (Verified 01/28/25 13:06)
Vomiting
Medications Reviewed: Yes
Current Antibiotics:
Vancomycin
Zosyn
Social History
Tobacco: Former Smoker
Alcohol: None
Drug: None
Living: With Family
Employment: Retired
Family History
Family History: Not Pertinent
Review of Systems
Vital Signs
Temp Pulse Resp BP Pulse Ox
98.7 F 105 18 114/63 89
01/29/25 07:37 01/29/25 07:37 01/29/25 07:37 01/29/25 07:37 01/29/25 07:37
Physical Exam
Physical Exam
Constitutional: No Acute Distress, Comfortable and Non-toxic
Head: Normocephalic
Eyes: Pupils Equal, Pupils Round, No Conjunctival Hemorrhage and Sclera Anicteric
Oral: No Thrush and No Ulcers
Cardiovascular: Regular Rate and S1/S2; Negative S3/S4
Pulmonary: Clear; Negative Wheezes, Rales or Rhonchi
Gastrointestinal: Soft, Tender (lower midline and LLQ), Distended, Normal Bowel Sounds, No Rebound and No Guarding
Genito-Urinary: Negative [place]
Extremities: Edema; Negative Cyanosis or Erythema
Skin: Warm and Dry; Negative Rash
Wound: Other (2 midline abdominal wounds noted along lower incision. Serous drainage. No overt pus. Positive overlying tenderness.)
Neurological: Awake and Alert
Lab / Diagnostic Study Results
01/29/25 06:32
01/29/25 06:32
Abs Immat Gran (auto) 0.1 10^3/uL (0-0.05) H 01/28/25 13:19
Absolute Neuts (auto) 15.4 10^3/uL (1.4-6.5) H 01/28/25 13:19
Absolute Lymphs (auto) 1.9 10^3/uL (1.2-3.4) 01/28/25 13:19
Absolute Monos (auto) 1.4 10^3/uL (0.1-0.6) H 01/28/25 13:19
Absolute Basos (auto) 0.0 10^3/uL (0-0.2) 01/28/25 13:19
Immature Gran % 0.4 % (0-0.5) 01/28/25 13:19
Neutrophils % 81.1 % (42.2-75.2) H 01/28/25 13:19
Lymphocytes % 10.2 % (20.5-51.1) L 01/28/25 13:19
Monocytes % 7.3 % (1.7-9.3) 01/28/25 13:19
Eosinophils % 0.8 % (0-6) 01/28/25 13:19
Basophils % 0.2 % (0-2) 01/28/25 13:19
Lactic Acid 1.3 mmol/L (0.7-2.0) 01/28/25 13:19
Ur Squamous Epith Cells >30 /LPF (Few) 01/28/25 13:20
Microbiology Results
Micro:
01/29/25 11:47 Wound Culture - Pending
Abdomen Gram Stain - Preliminary
01/28/25 13:19 Blood Culture - Preliminary
Blood/Venous No Growth in 24 hours- Final report to follow
01/28/25 13:20 Urine Culture - Preliminary
Urine Proteus species
01/28/25 22:08 MRSA Screen - Pending
Nose
01/28/25 13:19 Influenza Types A & B ([facility]) - Final
Nasal Swab Negative for Influenza A & B, NAAT
Negative results must be combined with clinical observations
and patient history.
Nucleic Acid Amplification test (NAAT)performed on the
[employer] NOW platform.
Imaging:
01/28/2025 CT abdomen/pelvis with IV contrast: findings suggesting moderate acute diverticulitis of the mid sigmoid colon. No evidence of perforation or abscess formation in the region. Findings are new from prior study. Also noted is a mildly
rim-enhancing fluid collection in the anterior pelvic wall which may be a postoperative seroma or hematoma. Abscess cannot be excluded. This is also new from prior study. Small anterior pelvic wall wound versus incisional dehiscence. Small
hiatal hernia, stable. Moderate fecal matter in the colon. Please see full dictation for additional detail.
Assessment / Plan
Fevers
Leukocytosis
Suspected acute sigmoid diverticulitis
History of recent abdominal hernia surgery with fluid collection; possibly infected
Ulcerative colitis (Remicade, methotrexate)
HTN
Recommendations:
Continue with empiric Zosyn and vancomycin. Follow Vanco levels closely to prevent nephrotoxicity
Will attempt to acquire records from prior hospitalization at [facility].
Wound culture of the lower abdomen has been obtained, although interpretation should be made cautiously as it may only reflect a superficial colonization.
Consider aspiration of lower abdomen collection to guide further antimicrobial selection and potential de-escalation.
[2025-01-29 15:41] VITALS: BP 114/56
--- NOTE | 2025-01-29 16:23 | W.DCSUMMARY ---
Addendum entered and electronically signed by Vincenzo Hadley MD 01/30/25 10:32:
DC date 01/30/25
Original Note:
Discharge Summary
Discharge Data
Date of Admission: 01/28/25
Date of Discharge: 01/29/25
-
Pending Results: No
Hospital Course
64yo F with PMHx of UC on Remicade, HTN, recent ventral hernia repair by in [facility] on 12/15/24, Hx of TRACE drain site and postOP wound infection on 01/01/25. Developed recurrent fever on 01/28/[address] found diverticulitis, also rim-enhancing
fluid collection in the anterior pelvic wall 5.8 x 1.5 x 4.4 cm. After consultation with GI and ID - and as per patient request - agrement that patient should be transferred to [facility] under care. Medically stable for transportation. SIgnout
given
I have spent at least 54min reviewing chart, test results, communication with consultants and providing direct patient care
Patient was managed for:
#Acute sygmoid Diverticulitis
#Small anterior pelvic wall wound versus incisional dehiscence.
#rim-enhancing fluid collection in the anterior pelvic wall
#Fatty liver disease
#Essential HTN
#UC not in flare
#RA
#Hypokalemia
Discharge Plan
-
Patient Disposition: Acute Care Hospital
Discharge Orders:
Discharge Patient (As Directed); Ordered 01/29/25
Ordered By: Vincenzo Hadley
Discharge Date and Time
Print Language: [place]AST [place]
[2025-01-29] MEDS: LOVENOX 40 MG SC (17:52)
[2025-01-29] MEDS: XANAX 0.25 MG PO (18:15)
[2025-01-29 23:27] VITALS: BP 120/67
[2025-01-30] MEDS: ZOSYN 50 IV ×3 (01:59→13:02)
[2025-01-30] MEDS: VANCOCIN 275 MG IV (05:43)
[2025-01-30] MEDS: XANAX 0.25 MG PO (05:57)
[2025-01-30] MEDS: TYLENOL 650 MG PO ×2 (06:01→14:26)
[2025-01-30 06:59] LABS: Hematocrit 30.4 % (37.0-47.0); Hemoglobin 9.9 g/dL (12.0-16.0); Mean Corp Hgb Conc. 32.6 g/dL (33.0-37.0); Mean Corpuscular Volume 86.4 fL (81.0-99.0); Nucleated Red Blood Cells % 0 %; Platelet Count 299 10^3/uL (130-400); Red Cell Dist. Width 13.2 % (11.5-14.5)
[2025-01-30 07:00] VITALS: BP 119/68
[2025-01-30 07:25] LABS: ALT (SGPT) 13 U/L (0-35); AST (SGOT) 16 U/L (14-36); Albumin 3.1 g/dl (3.5-5.0); Alkaline Phosphatase 95 U/L (38-126); Blood Urea Nitrogen 10 mg/dl (7-17); Calcium 8.2 mg/dl (8.4-10.2); Carbon Dioxide 32 mmol/L (22-30); Chloride 96 mmol/L (98-107); Estimated Creatinine Clearance 62 ml/min; Glucose 101 mg/dl (70-99); Potassium 3.3 mmol/L (3.5-5.1); Sodium 132 mmol/L (135-145); Total Protein 6.0 g/dl (6.3-8.2); eGFR > 60.00
[2025-01-30] MEDS: MIRALAX PO (08:04)
--- NOTE | 2025-01-30 08:44 | PHA.VAN.FU ---
Vancomycin Assessment / Plan
- Assessment
Renal Function: Stable
WBC's are: Trending Down
In the past 24 hrs, patient has been: Afebrile
Concomitant Antimicrobials: PIPERACILLIN/TAZOBACTAM
- Dosing Plan
Continue: VANCO 1250MG Q24H
- Monitoring Plan
No level(s) ordered at this time: CONSIDER LEVEL PRIOR TO 4TH MAINTENANCE DOSE
- Follow Up
Pharmacy will continue to follow.
Vancomycin Follow UP
- -
Patient Age: 64
Patient Sex: Female
Vancomycin Day #: 3
Indication: Skin And Soft Tissue
Requesting Provider: Manuel Babb
Height / Weight:
Height 5 ft
Actual Weight 74.021 kg
Pertinent Past Medical History: s/p two ventral hernias repai at [facility], December 15 complictaed with infection
- Vital Signs / Lab Results
Temp Pulse Resp BP Pulse Ox
100 F 94 20 119/68 93
01/30/25 07:00 01/30/25 07:00 01/30/25 07:00 01/30/25 07:00 01/30/25 07:00
Lab Results - Hematology
01/28/25 01/29/25 01/30/25
13:19 06:32 05:45
WBC 19.0 H 15.8 H 13.7 H
Lab Results - Chemistry
01/28/25 01/29/25 01/30/25
13:19 06:32 05:45
BUN 21 H 15 10
Creatinine 0.8 0.9 0.8
Estimated Creat Clear 55 62
Albumin 3.9 3.1 L
01/28/25
13:19
Lactic Acid 1.3
Lab Results - Urine
01/28/25
13:20
Urine Nitrite (Reflex) Negative
Leukocyte Esterase Rfl 3+ A
Ur Squamous Epith Cells >30
Microbiology Results
01/28/25 13:20 Urine Culture - Preliminary
Urine Proteus species
01/29/25 11:47 Gram Stain - Preliminary
Abdomen
01/28/25 13:19 Blood Culture - Preliminary
Blood/Venous No Growth in 24 hours- Final report to follow
01/28/25 13:19 Influenza Types A & B ([facility]) - Final
Nasal Swab Negative for Influenza A & B, NAAT
Negative results must be combined with clinical observations
and patient history.
Nucleic Acid Amplification test (NAAT)performed on the
[employer] NOW platform.
[2025-01-30] MEDS: KCL 40 MEQ PO (09:49)
--- NOTE | 2025-01-30 10:28 | W.PN.HOSP.TC ---
Addendum entered and electronically signed by Vincenzo Hadley MD 01/30/25 10:31:
#Asymptomatic bacteriuria
P.mirabilis sensitive to Zosyn
already on abx
Original Note:
Today's Communication/Plan
-
cont abx pending transfer
WBC improving - infection controlled
Assessment / Plan
Assessment / Plan
64yo F with PMHx of UC on Remicade, HTN, recent ventral hernia repair by in [facility] on 12/15/24, Hx of TRACE drain site and postOP wound infection on 01/01/25. Developed recurrent fever on 01/28/[address] found diverticulitis, also rim-enhancing
fluid collection in the anterior pelvic wall 5.8 x 1.5 x 4.4 cm
A/P:
#Acute sygmoid Diverticulitis
Zosyn
Advance diet as tolerated
Bcx NTD
Colonoscopy in 4-6 weeks after resolution
#Small anterior pelvic wall wound versus incisional dehiscence.
#rim-enhancing fluid collection in the anterior pelvic wall
apparently known to patient
add Vanco
Pending transfer to care in [facility]
Wound Cx: S.aureus and GNB
ID advised fluid drain - surgical service deferred to [facility] as transfer pending
#Fatty liver disease
#Essential HTN
#UC not in flare
#RA
cont home meds
#Hypokalemia
replete and follow
DVt ppx lovenox
Full code
I have spent at least 36min reviewing chart, test results, communication with consultants and providing direct patient care
Anticipated Discharge: Today
Subjective/Interval History
-
Date of Service: January 30, 2025
Objective Data
-
Labs:
Laboratory Results
01/30/25
05:45
WBC 13.7 H
Hgb 9.9 L
Hct 30.4 L
Plt Count 299
Sodium 132 L
Potassium 3.3 L
Chloride 96 L
Carbon Dioxide 32 H
BUN 10
Creatinine 0.8
Glucose 101 H
Calcium 8.2 L
Total Bilirubin 0.5
AST 16
ALT 13
Alkaline Phosphatase 95
Vital Signs:
Vital Signs
Temp Pulse Resp BP Pulse Ox
100 F 94 20 119/68 93
01/30/25 07:00 01/30/25 07:00 01/30/25 07:00 01/30/25 07:00 01/30/25 07:00
I&O
01/29/25 01/30/25 01/31/25
06:59 06:59 06:59
Intake Total 600 / 600
Balance 600 / 600
Review of Systems
-
History Source: Patient
All other systems: Reviewed and negative
Physical Exam
-
General: No Apparent Distress
Neuro: Awake, Alert, Oriented and AO x 3
Psych: Calm
--- NOTE | 2025-01-30 12:02 | CM ---
CM reviewed chart, patient for transfer to [facility].
Plan; transfer to [facility]
[2025-01-30 14:28] VITALS: BP 132/74
== END 2025-01-30 15:36 | disposition short-term general hospital (02) | DRG 392 ==
LOC: 4 WEST ACU 20:42
PROVIDERS: Emergency Medicine; Registered Nurse; ADMITTING PHYSICIAN Internal Medicine; ATTENDING PHYSICIAN Internal Medicine; CONSULT PHYSICIAN Internal Medicine Infectious Disease; CONSULT PHYSICIAN Surgery; EMERGENCY PHYSICIAN Emergency Medicine; FAMILY PHYSICIAN Family Medicine
DX: K57.32 Diverticulitis of large intestine without perforation or abscess without bleeding (principal); E87.1 Hypo-osmolality and hyponatremia; K51.90 Ulcerative colitis, unspecified, without complications; K76.0 Fatty (change of) liver, not elsewhere classified; I10 Essential (primary) hypertension; Z79.631 Long term (current) use of antimetabolite agent; M06.9 Rheumatoid arthritis, unspecified; E87.6 Hypokalemia; Z87.891 Personal history of nicotine dependence; Z88.5 Allergy status to narcotic agent; K59.00 Constipation, unspecified; T50.2X5A Adverse effect of carbonic-anhydrase inhibitors, benzothiadiazides and other diuretics, initial encounter; Z79.620 Long term (current) use of immunosuppressive biologic; Z79.899 Other long term (current) drug therapy; F32.A Depression, unspecified; F41.9 Anxiety disorder, unspecified; G47.33 Obstructive sleep apnea (adult) (pediatric); K21.9 Gastro-esophageal reflux disease without esophagitis; Z11.52 Encounter for screening for COVID-19
CPT/HCPCS: 74177; 80048; 80053; 81003; 81015; 83605; 85025; 85027; 87040; 87070; 87077; 87086; 87147; 87186; 87205; 87502; 87811; 96365; 96367; 96375; 99284; 99406; Q9967